=== PATIENT | female | born 1960 | race Caucasian/White ===

== ENCOUNTER 2025-02-26 14:10 | Emergency (ER) | payer BC, SELFPAY ==
--- OUTSIDE RECORDS SUMMARY | 2025-02-26 14:13 | XMS_ITS | Clinical Summary ---
Author Organization [employer] [facility] Address [address] [place] [address] Care Team Providers Care Plate Corrector Name Role Phone Carolina Summers Primary Care Provider Allergies Active Allergy Reactions Criticality Noted Date Comments Yikondx-Lxr-Hdb Reductase Inhibitors Myalgia High 02/19/2007 Medications loratadine (CLARITIN) 10 mg tabletIndications: Environmental allergies Take 1 tablet by mouth once daily. 30 tablet PRN 1 Active amLODIPine (NORVASC) 5 mg tabletIndications: Essential hypertension Take 1 Tablet (5 mg) by mouth once daily. 90 Tablet 3 4 Active losartan (COZAAR) 50 mg tabletIndications: Essential hypertension Take 1 Tablet (50 mg) by mouth two times daily. 180 Tablet 3 4 Active rosuvastatin (CRESTOR) 10 mg tabletIndications: Mixed hyperlipidemia Take 1 Tablet (10 mg) by mouth at bedtime. 90 Tablet 3 4 Active triamterene-hydroc hlorothiazide, 37.5-25 mg, (MAXZIDE-25) 37.5-25 mg tabletIndications: Essential hypertension Take 1 Tablet by mouth once daily in the morning. 90 Tablet 3 4 Active Ventolin HFA 90 mcg/actuation inhalerIndications :Environmental allergies INHALE 1-2 PUFFS BY MOUTH 4 TIMES DAILY IF NEEDED FOR SHORTNESS OF BREATH. 18 g 2 5 Active benzonatate (TESSALON) 200 mg capsuleIndications :Acute cough Take 1 Capsule (200 mg) by mouth 3 times daily if needed for Cough. 21 Capsule 01/06/2025 1:40 PM CDT 5 Active Active Problems Problem Noted Date Diagnosed Date H/O total hysterectomy 09/07/2021 Adenomatous colon polyp 06/08/2015 Overview (06/08/2015): Colonoscopy 05/2015 polyps repeat in 5 years Vitamin D deficiency 06/29/2014 Environmental allergies 05/04/2010 Tobacco use disorder 12/23/2009 Mixed hyperlipidemia 01/28/2009 Unspecified essential hypertension 02/19/2007 Depressive disorder, not elsewhere classified Unspecified disorder of lipoid metabolism 2006 Encounters Date Type Department Care Team Description 01/06/2025 12:50 PM CDT Ancillary Procedure [address] [phone] 01/06/2025 12:15 PM CDT Office Visit [facility] [address] [place] [phone] Mary Solis, DENNY Cough; Sinus Problem 01/06/2025 Travel 12/18/2024 7:30 AM CDT Ancillary Procedure [facility] [address] [place] [address] 12/18/2024 Travel 12/15/2024 Refill [facility] [address] [place] [address] Carolina Summers PA Refill Request (Ventolin Hfa) 12/12/2024 Telephone [facility] [address] [place] [address] Lg Donahue MD Appointment Request (colonoscopy) 12/12/2024 Telephone [facility] [address] [place] [address] Carolina Summers PA from Last 3 Months Immunizations Immunization Administration Dates Next Due AMB Influenza, IIV4 PF (=>6 mos Flulaval,Fluzone Fluarix)(Flu Clinic Only) 01/28/2020 Influenza Virus, Unspecified 01/27/2016,01/21/20 14 Influenza, IIV3 (Age >=3 years) 01/21/2013,03/26,02/19/2007 Influenza, IIV4 02/09/2023,02/03/2022,03/04/2021 Influenza, IIV4 (=>6mos) MDV 01/31/2018,02/02/20 17 Influenza,CCIIV4 PRESERV FREE 01/28/2019 Pneumococcal Conj 20-valent (Prevnar 20) 023 Td (Age >=7 Years) 02/03/2022,09/03/1997 Tdap 04/03/2008 Zoster (Shingrix-RZV, recombinant) 04/05/2022, Family History Medical History Relation Name Comments Diabetes Father Hypertension Father Asthma Mother Cancer Mother metastatic lung Hypertension Mother Cancer-breast Other 1st cousins, P at. x3 Other Other two first cousi ns, female, on dad's side of family with breast cancer Cancer-breast Sister 55 at diagnosi s Cancer-ovarian No Family History Relation Name Status Comments Father Mother Other Sister Social History Tobacco Use Types Packs/Day Years Used Date Smoking Tobacco: Every Day Cigarettes 1 20 Smokeless Tobacco: Never Tobacco Cessation:Ready to Q uit: Not Asked; Counseling Given: Not Answered Comments:started at age 16-17 Alcohol Use Standard Drinks/Week Comments Yes 12 (1 standard drink = 0.6 oz pu re alcohol) PHQ-2 Answer Date Recorded PHQ-2 TOTAL SCORE 0 02/09/2023 Social Connections Answer Date Recorded Do you often feel lonely or isolated from those around you? 0 02/26/2024 Financial Resource Strain Answer Date R ecorded Difficulty of Paying Living Expenses 3 02/26/2024 Difficulty of Paying Living Expenses Not on file 02/26/2024 Food Insecurity Answer Date Recorded Do you worry your food will run out before you are able to buy more? 1 02/26/2024 Transportation Needs Answer Date Record ed Does lack of transportation keep you from medica l appointments? 1 02/26/2024 Does lack of transportation keep you from work, meetings or getting things that you need? 1 02/26/2024 Housing Stability Answer Date Recorded What is your housing situation today? 1 02/26/2024 Utilities Answer Date Recorded Do you have trouble paying f or utilities (for example, heat, electricity, water, phone)? 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 Gender Identity Not on file Sexual Orientation Not on file Occupation Industry Job Start Date Job End Date Not on file Not on file Not on file Not on file Obstetrics History Para Term AB IAB SAB Ectopic Multiple Livin g Live Births 0 0 0 0 0 0 0 0 0 0 Last Filed Vital Signs Vital Sign Reading Time Taken Comments Blood Pressure 128/58 01/06/2025 12:30 PM CDT Pulse 81 01/06/2025 12:30 PM CDT Temperature 36.4 C (97.6 F) 01/06/2025 12:30 PM CDT Respiratory Rate 20 01/06/2025 12:30 PM CDT Oxygen Saturation 98% 01/06/2025 12:30 PM CDT Inhaled Oxygen Concentration - - Weight 66.9 kg (147 lb 6.4 oz) 01/06/2025 12:30 PM CDT Height 160.2 cm (5' 3.07) 02/26/2024 7:42 AM CD T Body Mass Index 26.05 02/26/2024 7:42 AM CDT Plan of Treatment Health Maintenance Due Date Last Done Comments HIV for age 15-65 1977 Colonoscopy through age 75 06/04/2020 06/04/2015, Depression screening for age 12+ 02/10/2024 02/09/2023, 01/26/2021, 01/25/2021, Additional history exists COVID-19 vaccine series ( season) 2025 03/23/2021, 03/04/2021 Influenza Vaccine (#1) 2025 , 02/03/2022, 03/04/2021, Additional history exists BMI (ht and wt on same day) for age 18+ 02/25/2025 02/26/2024, 02/09/2023, 02/03/2022, Additional history exists Mammogram for age 45-75 03/20/2025 03/20/20 24, 03/12/2023, 03/02/2022, Additional history exists Low Dose CT (for lung CA) age 50-80 12/18/2025 12/18/2024, 07/11/2023 Lipids for age 45-75 02/25/2029 02/26/2024, 02/09/2023, 02/03/2022, Additional history exists Tetanus booster 02/04/2032 02/03/2022, 03/15, 09/03/1997 RSV vaccine for adults or (1 - 1-dose 75+ series) 2037 Hepatitis C screening for age 18-79 Completed 02/03/2022 Zoster (shingles) series for age 50+ Completed 04/05/2022, 02/03/2022 Pneumococcal series for age 50+ Completed 02/09/2023 Hepatitis B series for 19+ Aged Out N o longer eligible based on patient's age to complete this topic Medical Devices Implanted Type Area Warehouse Selector Device Identifier Shelf Expiration Date Model / Serial / Lot Prosth [place] 2x5.6mm Adjust Titnm - [id number] Implanted:Qty: 1 on 02/25/2020 by Camacho Richardson MD at Left: [employer] 11/09/2023 655# / / [id number] Procedures Procedure Name Priority Date/Time Associated Diagnosis Comments XR CHEST 2 VIEWS PA AND LATERAL STAT 01/06/2025 1:06 PM CDT SOB (shortness of breath) Acute cough COVID-19 MOLECULAR Routine 01/06/2025 12 :57 PM CDT Acute cough Nasal congestion CT CHEST SCREENING LOW DOSE WO CONTRAST Routine 12/18/2024 7:40 AM CDT Encounter for screening for lung cancer Cigarette smoker XR MAMMO ROBERTO BILAT SCREEN Routine 03/20/2024 1:[address] 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 Dictated by Joe Grullon MD @ 01/06/2025 1:16:31 PM (Electronically Signed) Narrative 01/06/2025 1:16 PM CDT For Patients: As a result of the Cures Act, medical imaging exams and procedure reports are released immediately into your electronic medical record. You may view this report before your referring provider. If you have questions, please contact your health care provider. INDICATION: Shortness of breath. TECHNIQUE: Chest 2 views. COMPARISON: 06/19/2024. FINDINGS: Cardiovascular and mediastinum: Heart size and vasculature are normal in caliber and appearance. Lungs and pleural spaces: No focal consolidation, pleural effusion, or pneumothorax. Bones and soft tissues: Unremarkable for age. Procedure Note Joe Grullon MD - 01/06/2025 For Patients: As a result of the Cures Act, medical imagingexams and procedure reports are released immediately into your electronicmedical record. You may view this report before your referring provider.If you have questions, please contact your health care provider. INDICATION: Shortness of breath. TECHNIQUE: Chest 2 views. COMPARISON: 06/19/2024. FINDINGS: Cardiovascular and mediastinum: Heart size and vasculature are normal incaliber and appearance. Lungs and pleural spaces: No focal consolidation, pleural effusion, orpneumothorax. Bones and soft tissues: Unremarkable for age. IMPRESSION: No evidence of an acute pulmonary process. Dictated by Joe Grullon MD @ 01/06/2025 1:16:31 PM (Electronically Signed) Mary Solis NP GENERAL IMAGING Final Result * COVID-19 MOLECULAR (01/06/2025 12:57 PM CDT) COVID 19 [facility] MOLECULAR Negative Negative 01/07/2025 1:43 AM CDT [facility] TESTING LABORATORY [facility] 01/07/2025 1:43 AM CDT [facility] Comment:Specimen submitted t o [facility] for testing. Other SPECIMEN FROM NASAL FOSSAE / Unknown Non-Blood / Unknown 01/06/2025 12:57 PM CDT 01/06/2025 3:29 PM CDT Narrative [facility] - 01/07/2025 1:43 AM CDT All PCR tests are subject to false negative result due to variability in viral load and collection technique. A negative result does not rule out a SARS-CoV-2 infection. Clinical correlation required. Mary Solis NP MICROBIOLOGY Final Result [facility] [address] [place] [address], [place] * CT CHEST SCREENING LOW DOSE WO CONTRAST (12/18/2024 7:40 AM CDT) Anatomical Region Laterality Modality Computed Tomogra phy Impressions 12/18/2024 3:26 PM CDT Stable tiny BILATERAL pulmonary nodules. LUNG-RADS CATEGORY: 2: BENIGN APPEARANCE OR BEHAVIOR. RADIOLOGIST RECOMMENDATION: Continue annual screening, if eligible, with low-dose CT chest in 12 months. Please note that all CT scans at this facility use dose modulation, iterative reconstruction and/or weight-based dosing when appropriate to reduce radiation dose to as low as reasonably achievable. Dictated by: Pietro Mendez MD @12/18/2024 2:40:36 PM /sp Narrative 12/18/2024 3:26 PM CDT For Patients: As a result of the Century Cures Act, medical imaging exams and procedure reports are released immediately into your electronic medical record. You may view this report before your referring provider. If you have questions, please contact your health care provider. CT CHEST SCREENING LOW-DOSE WITHOUT CONTRAST 12/18/2024 INDICATION: Lung cancer screening. History of smoking. TECHNIQUE: Low-dose lung cancer screening non-contrast CT chest. Dose reduction techniques were used. COMPARISON: 07/11/2023. FINDINGS: NODULES: Multiple tiny nodules are again noted bilaterally measuring 3 mm or less. LUNGS AND PLEURA: No acute findings. MEDIASTINUM: Thyroid is enlarged and heterogeneous, as before. No enlarged lymph nodes. CORONARY ARTERY CALCIFICATION: Mild. LIMITED UPPER ABDOMEN: Atherosclerotic changes. MUSCULOSKELETAL: No fracture. 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 Recommend annual mammograms. MAMMOGRAM ASSESSMENT: ACR 1 Negative PATIENTS: You will also receive a letter with your examination results in an easy to read format. If you have questions about your results, please contact your referring provider. 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 You may view this report before your referring provider. If you have questions, please contact your health care provider. XR MAMMO ROBERTO BILAT SCREEN [[id number]] CLINICAL HISTORY: This is an asymptomatic 63 y.o. patient. INDICATION FOR EXAM: Mammogram Screening. TECHNIQUE: CC & MLO views were obtained. This study was evaluated with the assistance of Computer-Aided Detection. Breast Tomosynthesis was used in interpretation. COMPARISON FILM: Yes 03/12/23 [facility] 03/02/22 [facility] FINDINGS: The breasts are heterogeneously dense, which may obscure small masses. There are no dominant masses, suspicious micro calcifications or areas of architectural distortion. Carolina CHINO MAMMO Final R esult * (ABNORMAL) LIPID PANEL W REFLEX MEASURED LDL (02/26/2024 8:13 AM CDT) CHOLESTEROL, TOTAL 158 <200 mg/dL [facility] HDL CHOLESTEROL 53 > OR = 50 mg/dL [facility] TRIGLYCERIDES 172(H) <150 mg/dL [facility] LDL-CHOLESTEROL 78 mg/dL (calc) [facility] Comment: Reference range: <100 Desirable range <100 mg/dL for primary prevention; <70 mg/dL for patients with CHD or diabetic patients with > or = 2 CHD risk factors. LDL-C is now calculated using the Lacho calculation, which is a validated novel method providing better accuracy than the Friedewald equation in the estimation of LDL-C. Lg SS et al. ROWENA. 2013;310(82): 7358-6931 (http://education.LearnUpon/faq/YWI311) CHOL/HDLC RATIO 3.0 <5.0 (calc) t3n [facility] NON HDL CHOLESTEROL 105 <130 mg/dL (calc) [facility] Comment: For patients with diabetes plus 1 major ASCVD risk factor, treating to a non-HDL-C goal of <100 mg/dL (LDL-C of <70 mg/dL) is considered a therapeutic option. Blood BLOOD SPECIMEN / Unknown 02/26/2024 8:13 AM CDT 02/26/2024 8:14 AM CDT Narrative [facility] - 02/27/2024 3:52 AM CDT FASTING:YES FASTING: YES Carolina CHINO CHEMISTRY Final R esult [facility] [address] [place] [address], [facility] [address] [place] [address] * ANTI HCV (02/03/2022 8:47 AM CDT) [facility] HEPATITIS C ANTIBODY Non-React edil Non-React edil 02/04/2022 5:35 AM CDT [facility] Comment:Antibodies to HCV no t detected; does not exclude the possibility of exposure to HCV. Blood BLOOD SPECIMEN / Unknown Venipuncture / Unknown 02/03/2022 8:47 AM CDT 02/03/2022 8:47 AM CDT us Carolina CHINO SEND OUTS Final R esult [facility] [address] [place] [address], [place] from Last 3 Months or Most Recently Relevant to Health Maintenance [place] [address] [address] [address] Advance Directives * Full Code (Latest Code Status on File) Date Activated Date Inactivated Comments 02/25/2020 6:11 AM 02/25/2020 4:14 PM Question Answer Comments Code Status Discussion: Not Discussed Care Teams Plate Corrector Relationship Specialty Start Date End Date Carolina Summers PA [address] [place] [address] PCP - General Physician Side Stapler 01/13/20
[2025-02-26 14:21] VITALS: BP 180/76; PULSE 96; RESP 16; TEMP 36.1; O2SAT 96; BMI 26.6
--- NOTE | 2025-02-26 14:29 | ED.BACK ---
HPI - Back Pain/Injury General Time Seen by Provider: 14:30 Date Seen: 02/26/25 Chief Complaint: Back Injury/Pain Stated Complaint: back pain Time Seen by Provider: 02/26/25 14:29 Source: patient and RN notes reviewed Mode of arrival: ambulatory Limitations: no limitations History of Present Illness HPI Narrative: Madisyn is a very pleasant 64-year-old female with history of hypertension and hyperlipidemia who comes to the emergency room for evaluation of back and leg pain. Madisyn notes that on February 14 she was mowing the lawn and ran out of gas. During that episode of going to get gas and caring out of battery to jump start the more she noted that she had some slight left lower back pain. Unfortunately a worsened over the next few days. A few days later the pain started radiating down her leg. This has stayed in the posterior thigh not past the knee. She has been to the chiropractor for many many visits over the past 2 weeks. She notes that it just isn't getting any better. She denies any fall or previous fractures. She notes that she had a DEXA scan in the past but has not repeated that and nor she on any medications for osteoporosis. She has not lost control of her bowel or bladder and she has no perineal numbness. She states her most comfortable position is standing up. Related Data Home Medications ?Medication ?Instructions ?Recorded ?Confirmed albuterol sulfate 90 mcg/actuation 1 - 2 puff inhalation QID PRN 02/26/25 02/26/25 aerosol inhaler (Ventolin HFA) dyspnea amlodipine 5 mg tablet 5 mg PO DAILY 02/26/25 02/26/25 losartan 50 mg tablet 50 mg PO BID 02/26/25 02/26/25 rosuvastatin 10 mg tablet 10 mg PO QPM 02/26/25 02/26/25 triamterene 37.5 1 tab PO QAM 02/26/25 02/26/25 mg-hydrochlorothiazide 25 mg tablet Previous Rx's ?Medication ?Instructions ?Recorded hydrocodone 5 mg-acetaminophen 325 1 tab PO Q4-6H PRN pain #10 tabs 02/26/25 mg tablet methylprednisolone 4 mg tablets in See Rx Instructions PO .COMPLEX 02/26/25 a dose pack (Medrol ([place])) #21 ea Allergies Allergy/AdvReac Type Severity Reaction Status Date / Time [id number] Reductase Allergy Mild Muscle Pain Verified 02/26/25 14:27 Inhibitor Review of Systems Status of ROS: Reports: 10 or more systems reviewed and unremarkable except as noted in History and below Const: Reports: chills; Denies: fever or fatigue Eyes: Denies: change in vision ENMT: Denies: neck pain or nasal congestion Cardio: Denies: chest pain, lightheadedness or shortness of breath with exertion Resp: Denies: shortness of breath GI: Denies: vomiting Musculo: Reports: back pain and extremity pain; Denies: neck pain or extremity swelling Endo: Denies: fatigue Exam Narrative: Exam Narrative: Madisyn is alert and oriented. No acute distress. External ears eyes nose clear. Left TM is somewhat retracted with out any evidence of erythema. Neck is supple. Heart with a regular rate and rhythm lungs are clear. Palpation of the lumbar spine yields no tenderness. No pain with palpation over the sciatic notch or sacrum. Patient has full strength and motor lower extremities although knee flexion on the left does increase her pain. DTRs 2 to 3+ bilaterally. Const: Vital Signs, click to edit/add: Vital Signs - 24 hr 02/26/25 14:21 Temperature 97.0 F L Pulse Rate [Pulse Oximeter] 96 Respiratory Rate 16 Blood Pressure [Ri ght Upper Arm] 180/76 H Pulse Oximetry 96 Oxygen Delivery Me thod Room Air Documenting provider has reviewed patient's vital signs: yes Course Course ED Course: Differential diagnosis includes but is not limited to musculoskeletal strain, disc protrusion, foraminal stenosis with radiculopathy. At this time there are no red flag symptoms most. Exam is reassuring. We will obtain x-rays as pain has been ongoing and worsening over the last 12 days. Vital Signs Vital signs: Initial Vital Signs Temperature 97.0 F L 02/26/25 14:21 Temperature Source Temporal Artery Scan 02/26/25 14:21 Pulse Rate 96 02/26/25 14:21 Respiratory Rate 16 02/26/25 14:21 Blood Pressure 180/76 H 02/26/25 14:21 Blood Pressure Mean 110 H 02/26/25 14:21 Pulse Oximetry 96 02/26/25 14:21 Oxygen Delivery Method Room Air 02/26/25 14:21 Vital Signs Temperature 97.0 F L 02/26/25 14:21 Pulse Rate 96 02/26/25 14:21 Respiratory Rate 16 02/26/25 14:21 Blood Pressure 180/76 H 02/26/25 14:21 Pulse Oximetry 96 02/26/25 14:21 Oxygen Delivery Method Room Air 02/26/25 14:21 Temperature 97.0 F L 02/26/25 14:21 Pulse Rate 96 02/26/25 14:21 Respiratory Rate 16 02/26/25 14:21 Blood Pressure 180/76 H 02/26/25 14:21 Pulse Oximetry 96 02/26/25 14:21 Oxygen Delivery Method Room Air 02/26/25 14:21 MDM - Back Pain/Injury MDM Narrative Medical decision making narrative: 1. Low back pain with radiculitis-but no red flag symptoms to suggest cauda equina, progressive neurological weakness. At this time I suggest use of a Medrol Dosepak as an anti-inflammatory. Of will hold off on any ibuprofen at this time. Pain meds to include [place] 5/325 1 tablet every 4-6 hours as needed for discomfort is given. Cautioned against driving, drinking alcohol or using any other sedating medications while on this medication. I did also states that any further narcotics would need to go through primary MD. recommend icing and gentle exercise. Would like patient to follow up with her clinic for evaluation for MRI and/or physical therapy. 2. Left ear discomfort-patient does not have evidence of otitis externa or otitis media. Evidence of congestion is noted with some retraction of the eardrum. Comfort cares at this time to include pain meds. If here has increasing pain drainage will need to be seen by medical expert. 3. Disposition-home at this time. Return for worsening symptoms and as needed. Red flag symptoms were discussed with Madisyn. Imaging Data Lumbar spine x-ray: Attestation: I have reviewed the pertinent imaging results. My impression: Arthritic changes but otherwise no could evidence of a compression fracture or other acute findings. Radiologist's impression: No acute displaced fracture or malalignment. Mild anterior spurring is seen throughout the lumbar spine. Moderate facet arthropathy at L5-S1 with [id number] neural foraminal narrowing at this level. Moderate vascular calcification. Impression: Mild leftward curvature of the lumbar spine. No acute displaced fracture or malalignment. Mild anterior spurring is seen throughout the lumbar spine. Moderate facet arthropathy at L5-S1 with [id number] neural foraminal narrowing at this level. Discharge Plan Discharge Clinical Impression: Left lumbar radiculitis, Discomfort of left ear Patient Disposition: Home, Self-Care Condition: Unchanged Additional Instructions: 1. Pain, medications can cause stomach upset. Would suggest that until this issue is resolved you would be on omeprazole 20 mg daily to protect her stomach. This medication is [id number]. 2. Will start you on a Medrol Dosepak. This is a steroid and is a strong anti-inflammatory. 3. For pain will have you use either Tylenol or hydrocodone. Hydrocodone comes in the form of [place] which is a combination medicine of Tylenol and hydrocodone. Thus, you do not want to take additional Tylenol with this medicine. It does a contain and narcotic which may cause constipation. You should not use this medicine if you are driving, using alcohol and you should not be taking any other sedating medications with it. 4. Ice pack to area of back discomfort 5. Recommend follow-up with the [facility]. You may need MRI and or physical therapy. 6. Return to the emergency room for worsening symptoms and as needed. 7. If you start experiencing ear pain ear drainage please follow-up with medical personnel. Prescriptions: New hydrocodone-acetaminophen 5-325 mg tablet 1 tab PO Q4-6H PRN (Reason: pain) Qty: 10 0RF methylprednisolone [Medrol ([place])] 4 mg tablets,dose pack See Rx Instructions .ROUTE .COMPLEX Qty: 21 0RF Rx Instructions: for 6 days No Action losartan 50 mg tablet 50 mg PO BID amlodipine 5 mg tablet 5 mg PO DAILY triamterene-hydrochlorothiazid 37.5-25 mg tablet 1 tab PO QAM albuterol sulfate [Ventolin HFA] 90 mcg/actuation HFA aerosol inhaler 1 - 2 puff INHALATION QID PRN (Reason: dyspnea) rosuvastatin 10 mg tablet 10 mg PO QPM Follow Up/Referrals: Carolina Summers PA-C [Primary Care Provider, Family Practice] Stand Alone Forms: [employer] Info Instructions
--- NOTE | 2025-02-26 14:43 | CRLHL7_ITS ---
For Patients: As a result of the Century Cures Act, medical imaging exams and procedure reports are released immediately into your electronic medical record. You may view this report before your referring provider. If you have questions, please contact your health care provider. Indication: LEFT LOWER BACK PAIN Technique: Two views of the lumbar spine. Comparison: None. Findings: Mild leftward curvature of the lumbar spine. No acute displaced fracture or malalignment. Mild anterior spurring is seen throughout the lumbar spine. Moderate facet arthropathy at L5-S1 with [id number] neural foraminal narrowing at this level. Moderate vascular calcification. Impression: Mild leftward curvature of the lumbar spine. No acute displaced fracture or malalignment. Mild anterior spurring is seen throughout the lumbar spine. Moderate facet arthropathy at L5-S1 with [id number] neural foraminal narrowing at this level. Dictated by Bhupinder White MD @ 02/26/2025 3:23:36 PM (Electronically Signed)
--- NOTE | 2025-02-26 14:43 | CRLHL7_ITS ---
For Patients: As a result of the Cures Act, medical imaging exams and procedure reports are released immediately into your electronic medical record. You may view this report before your referring provider. If you have questions, please contact your health care provider. Indication: LEFT BUTTOCK AND LEG PAIN Technique: Single view of the pelvis. Comparison: None. Findings: Mild degenerative changes of the bilateral hips. No acute displaced fracture or malalignment. Impression: No acute displaced fracture or malalignment. Dictated by Bhupinder White MD @ 02/26/2025 3:24:53 PM (Electronically Signed)
== END 2025-02-26 16:08 | disposition home or self-care (01) ==
PROVIDERS: Emergency Provider Family Medicine; PCP Physician Assistant Medical
DX: M54.16 Radiculopathy, lumbar region (principal); M54.42 Lumbago with sciatica, left side; H92.02 Otalgia, left ear
CPT/HCPCS: 72100; 72170; 99284

== ENCOUNTER 2025-05-02 12:06 | Emergency (ER) | payer BC, SELFPAY ==
--- OUTSIDE RECORDS SUMMARY | 2025-05-02 12:07 | XMS_ITS | Clinical Summary ---
Author Organization [facility] [employer] [facility] Address [address] [place] [address] Care Team Providers Care Lokie Driver Name Role Phone Carolina Summers Primary Care Provider Allergies Active AllergyReactionsCriticalityNoted EveaNjikxxdqWhaoxfllcqBixyh17/25/2025 Cbnyeph-Qfw-Uvo Reductase IjuchpytuhYmdiyjdPlff75/09/2007 Medications MedicationSigDispense QuantityRefillsLast FilledStart DateEnd DateStatus loratadine (CLARITIN) 10 mg tablet Indications:Environmental allergiesTake 1 tablet by mouth once daily. 30 tablet PRN1ctive amLODIPine (NORVASC) 5 mg tablet Indications:Essential hypertensionTake 1 Tablet (5 mg) by mouth once daily. 90 Tablet 5Active losartan (COZAAR) 50 mg tablet Indications:Essential hypertensionTake 1 Tablet (50 mg) by mouth two times daily. 180 Tablet 5Active rosuvastatin (CRESTOR) 10 mg tablet Indications:Mixed hyperlipidemiaTake 1 Tablet (10 mg) by mouth at bedtime. 90 Tablet 5Active triamterene-hydrochlorothiazide (37.5-25 mg) (MAXZIDE-25) 37.5-25 mg tablet Indications:Essential hypertensionTake 1 Tablet by mouth once daily in the morning. 90 Tablet 5Active Ventolin HFA 90 mcg/actuation inhaler Indications:Environmental allergiesINHALE 1-2 PUFFS BY MOUTH 4 TIMES DAILY IF NEEDED FOR SHORTNESS OF BREATH. 18 g 5Active polyethylene glycol-electrolyte (Golytely) 236-22.74-6.74 -5.86 gram suspension Indications:Screen for colon cancerTake 4,000 mL by mouth one time for 1 dose. Please follow colonoscopy prep instructions provided toyou by the surgery center. 4000 mL 6005/18/2025ctive Ventolin HFA 90 mcg/actuation inhaler Indications:Environmental allergiesINHALE 1-2 PUFFS BY MOUTH 4 TIMES DAILY IF NEEDED FOR SHORTNESS OF BREATH. 18 g Discontinued(Reorder (E-cancel not sent)) Active Problems ProblemNoted DateDiagnosed DateH/O total gbhafftlzdqx29/27/2022denomatous colon polyp06/08/2015 Overview (06/08/2015): Colonoscopy 05/2015 polyps repeat in 5 years Vitamin D lhllzidtmb50/16/2015Environmental ytszbkjaq20/22/2010Tobacco use objwmxzd26/12/2010Mixed pzdrgtxwuwiwst53/17/2009Unspecified essential iwxdgwrkjerz44/09/2007Depressive disorder, not elsewhere jqycdqxrnf63/09/2007 Unspecified disorder of lipoid bivlyhvqpg33/09/2007 Encounters DateTypeDepartmentCare MqhzXqjqbnzimnf35/26/2025Telephone [facility] [address] [place] [address] Nancy Gomez, DO Need Meds106/08/2024Telephone [facility] [address] [place] [address] Carolina Summers PA Zidszxf9104/07/2025 7:30 AM CSTOffice Visit [facility] [address] [place] [address] Carolina Summers PA Physical (64 years old)04/07/20258969Tzcyli71/20/9391Ifxfmn66/19/2025 2:00 PM SPECIAL SERVICES COORDINATOR Office Visit [facility] [address] [place] [address] Amanda Rojas AuD Hearing Problem (Hearing test)04/01/2025 1:30 PM CSTOffice Visit [facility] [address] [facility] [place] [address] Kiana Kamara PA Ear Problem (Ear wax - has a history of cholesteatoma of left middle ear) 04/01/20256656Aimlia54/17/2025 7:40 AM CSTAncillary Procedure [facility] [address] [place] [address] 03/30/20251385Nythtv00/14/7385Svaxmz62/22/2025 7:30 AM CDTOffice Visit [facility] [address] [place] [address] Howard Benedict MD ER Follow up (Back pain, [place], 02/26/25)03/03/20255221Fyeucv07/17/2025Refill [facility] [address] [place] [address] Carolina Summers PA Refill Request (Rosuvastatin, Losartan, MAXZIDE, Amlodipine)02/26/2025Orders Only [facility] Scanner 1 scan: (1-Ord) [facility], XR LUMBAR SPINE 2-3V, 51 Orders Only [facility] Scanner 1 scan: (1-Ord) [facility], XR PELVIS 1-2V, 02/26/2025from Last 3 Months Immunizations ImmunizationAdministration DatesNext DueAMB Influenza, IIV4 PF (=>6 mos Flulaval,Fluzone Fluarix)(Flu Clinic Only)01/28/2020INFLUENZA, IIV3 PF (AGE >= 6 MO)04/07/2025Influenza Virus, Ovvtrtykuae34/15/2016,01/20/2014Influenza, IIV3 (Age >=3 years)01/21/2013,03/26/2008,02/19/2007Influenza, AYH764/, 02/03/2022,03/04/2021Influenza, IIV4 (=>6mos) MDV01/31/2018,02/01/2017 Influenza,CCIIV4 PRESERV FREE01/28/2019Pneumococcal Conj 20-valent (Prevnar 20) 02/09/2023Td (Age >=7 Years)02/03/2022,09/03/1997Tdap106/03/2007Zoster (Shingrix- RZV, recombinant)04/05/2022,02/03/2022 Family History Medical HistoryRelationNameCommentsDiabetesFatherHypertensionFatherAsthmaMother CancerMothermetastatic lungHypertensionMotherCancer-tieubvIunek4xf cousins, Pat. l9WqcvsXsqiyjwc first cousins, female, on dad's side of family with breast cancerCancer-breastSister 0Crvhdy32 at diagnosisCoronary artery diseaseSister 1 DebbieHypertensionSister 1DebbieHyperlipidemiaSister 2MarthaHypertensionSister 2 MarthaSkin cancerSister 2MarthaHyperlipidemiaSister 3DeeannaHypertensionSister 3 DeeannaCancer-ovarianNo Family HistoryRelationNameStatusCommentsBrotherMikeAlive FatherDeceasedMotherDeceasedOtherSister 1DebbieAliveSister 2MarthaAliveSister 3 DeeannaAlive Social History Tobacco UseTypesPacks/DayYears UsedDateSmoking Tobacco: Every PfkUtingvwyig494 Smokeless Tobacco: Never Tobacco Cessation:Ready to Q uit: No; Counseling Given: Yes Comments:started at age 16-19 Alcohol UseStandard Drinks/SjbaVgzkyrnrRqx76 (1 standard drink = 0.6 oz pure alcohol)PHQ-2AnswerDate RecordedPHQ-2 TOTAL ZVWJX545Social Connections AnswerDate RecordedDo you often feel lonely or isolated from those around you?0 03/03/2025lcohol UseAnswerDate RecordedHow often do you have a drink containing alcohol?How many drinks containing alcohol do you have on a typical day when you are drinking?How often do you have five or more drinks on one occasion?Financial Resource StrainAnswerDate Recorded Difficulty of Paying Living Zfgavyni983/21/2025Difficulty of Paying Living ExpensesNot on file03/03/2025Food InsecurityAnswerDate RecordedDo you worry your food will run out before you are able to buy more?Transportation NeedsAnswerDate RecordedDoes lack of transportation keep you from medical appointments?Does lack of transportation keep you from work, meetings or getting things that you need?Housing StabilityAnswerDate Recorded What is your housing situation today?UtilitiesAnswerDate RecordedDo you have trouble paying for utilities (for example, heat, electricity, water, phone)?CommentsNoSex and Gender InformationValueDate Recorded Sex Assigned at BirthNot on fileLegal OskTvcutl68/14/2013 6:18 AM CSTGender IdentityNot on fileSexual OrientationNot on fileOccupationIndustryJob Start Date Job End DateNot on fileNot on fileNot on fileNot on file Obstetrics History GravidaParaTermPretermABIABSABEctopicMultipleLivingLive [id number] Last Filed Vital Signs Vital SignReadingTime TakenCommentsBlood Kvgrkiek625/8204/07/2025 7:32 AM SPECIAL SERVICES COORDINATOR Lgygs564604/07/2025 7:32 AM QBAEydiwteglzo41.6 ??C (97.9 ??F)03/04/2025 7:33 AM CDTRespiratory Rkln4004 12:30 PM CDTOxygen Rmvfvdvlat46%03/04/2025 7:33 AM CDTInhaled Oxygen Concentration--Acyzjp17.4 kg (148 lb 11.2 oz)04/07/2025 7:32 AM DYKWeolbf862 cm (5' 3)04/07/2025 7:32 AM CSTBody Mass Index26.34 04/07/2025 7:32 AM SPECIAL SERVICES COORDINATOR Plan of Treatment DateTypeDepartmentCare Team (Latest Contact Info)Haroggxwzel68/13/2026Hospital Encounter [facility] [address] [place] [address] Nancy Gomez DO [address] [place] [address] NamePriorityAssociated DiagnosesDate/TimeCOLONOSCOPY Screening for colon cancer Health MaintenanceDue DateLast DoneCommentsHIV for age 15-65008/23/1977 Colonoscopy through age 750///, 06/04/2015Depression screening for age 12+/, 01/26/2021, 01/25/2021, Additional history existsCOVID-19 vaccine series (2024- season), 03/04/2021ow Dose CT (for lung CA) age 50-800608/11/2024, 07/11/2023 Mammogram for age 45-75, 03/20/2024, 03/12/2023, Additional history existsBMI (ht and wt on same day) for age 18+, 03/04/2025, 02/26/2024, Additional history existsLipids for age 45-7504/07/2030 04/07/2025, 02/26/2024, 02/09/2023, Additional history existsTetanus booster /, 04/03/2008, 09/03/1997RSV vaccine for adults or (1 - 1-dose 75+ series)2037Hepatitis C screening for age 18-79Completed 02/03/2022Zoster (shingles) series for age 50+Toyyyjkbh78/23/2022, 02/03/2022 Pneumococcal series for age 50+Jamedicfu81/29/2023Influenza VaccineCompleted 04/07/2025, 02/09/2023, 02/03/2022, Additional history existsHepatitis B series for 19+Aged OutNo longer eligible based on patient's age to complete this topic Goals GoalPatient Goal TypeAssociated ProblemsRecent ProgressPatient-Stated?Author Autogenerated Goal Care PlanAutogenerated [employer] ImplantedTypeAreaManufacturerDevice IdentifierShelf Expiration DateModel / Serial / LotProsth [facility] 2x5.6mm Adjust Titks - [id number] Implanted:Qty: 1 on 02/25/2020 by Camacho [facility]: Ear [id number]# / / [id number] Procedures Procedure NamePriorityDate/TimeAssociated DiagnosisCommentsLIPID PANEL W REFLEX MEASURED NZQLwrvhtj55/25/2025 8:29 AM SPECIAL SERVICES COORDINATOR Mixed hyperlipidemia BASIC METABOLIC VALFLYmvvrng09/25/2025 8:29 AM SPECIAL SERVICES COORDINATOR Unspecified essential hypertension XR MAMMO ROBERTO BILAT TFBWOPQgdeipf58/17/2025 7:55 AM SPECIAL SERVICES COORDINATOR Visit for screening mammogram SCAN-RADIOLOGY GWVVGD1802/26/2025 12:00 AM CDT SCAN-RADIOLOGY NUSHBN3102/26/2025 12:[address] CHEST SCREENING LOW DOSE WO XZEDPKNKJjljajh33/07/2025 7:40 AM CDT Encounter for screening for lung cancer Cigarette smoker ANTI TUKFdlvyma81/23/2022 8:47 AM CDT Need for hepatitis C screening test from Last 3 Months or Most Recently Relevant to Health Maintenance Results * (ABNORMAL) LIPID PANEL W REFLEX MEASURED LDL (04/07/2025 8:29 AM SPECIAL SERVICES COORDINATOR)Component ValueRef RangeTest MethodAnalysis TimePerformed AtPathologist Signature CHOLESTEROL, YYATI178<200 mg/dL04/08/2025 4:52 AM [facility]ST[facility] CHEWAMVBABVYS361(H)<150 mg/dL04/08/2025 4:52 AM CSTQUEST DIAGNOSTICSHDL TWDPDEUXUVQ49> OR = 50 mg/dL04/08/2025 4:52 AM CSTQUEST DIAGNOSTICSNON HDL RHNGIDDFJLQ06<130 mg/dL (calc)04/08/2025 4:52 AM CSTQUEST DIAGNOSTICSComment: For patients with diabetes plus 1 major ASCVD risk factor, treating to a non-HDL-C goal of <100 mg/dL (LDL-C of <70 mg/dL) is considered a therapeutic option. CHOL/HDLC RATIO2.6<5.0 (calc)04/08/2025 4:52 AM CST[facility] LDL-MAWZYOEQVNW43ru/dL (calc)04/08/2025 4:52 AM CSTQUEST DIAGNOSTICSComment: Reference range: <100 Desirable range <100 mg/dL for primary prevention; <70 mg/dL for patients with CHD or diabetic patients with > or = 2 CHD risk factors. LDL-C is now calculated using the Lacho calculation, which is a validated novel method providing better accuracy than the Friedewald equation in the estimation of LDL-C. Lg SS et al. ROWENA. 2013;310(19): 7889-1916 (http://education.[employer]/faq/CVM634) Specimen (Source)Anatomical Location / LateralityCollection Method / Volume Collection TimeReceived TimeBloodBLOOD SPECIMEN / UnknownQuest Collect / Unknown 04/07/2025 8:29 AM CST04/07/2025 8:29 AM SPECIAL SERVICES COORDINATOR Narrative Authorizing ProviderResult TypeResult StatusBridget Sepideh Summers PACHEMISTRY Final ResultPerforming OrganizationAddressCity/State/ZIP CodePhone Number [facility] [employer] [facility] [address] [place] [address], * (ABNORMAL) BASIC METABOLIC PANEL (04/07/2025 8:29 AM SPECIAL SERVICES COORDINATOR)ComponentValueRef RangeTest MethodAnalysis TimePerformed AtPathologist IgpchwftgARTNDQ179287 - 146 mmol/L106/08/2024 4:52 AM CSTQUEST DIAGNOSTICSPOTASSIUM4.23.5 - 5.3 mmol/L 04/08/2025 4:52 AM CSTQUEST DIAGNOSTICSCARBON PJZMZUV1091 - 32 mmol/L 04/08/2025 4:52 AM CSTQUEST DLUIMFWAIPZDUYXZHO088(H)65 - 99 mg/dL04/08/2025 4:52 AM CSTQUEST DIAGNOSTICSComment: ? Fasting reference interval For someone without known diabetes, a glucose value between 100 and 125 mg/dL is consistent with prediabetes and should be confirmed with a follow-up test. SUYTNMX18.28.6 - 10.4 mg/dL04/08/2025 4:52 AM CSTQUEST DIAGNOSTICSCREATININE0.90 0.50 - 1.05 mg/dL04/08/2025 4:52 AM CSTQUEST DIAGNOSTICSBUN/CREATININE RATIOSEE NOTE:6 - 22 (calc)04/08/2025 4:52 AM CSTQUEST DIAGNOSTICSComment: ?? Not Reported: BUN and Creatinine are within ?? reference range. ? EGFR72> OR = 60 mL/min/1.66o73604/08/2025 4:52 AM CSTQUEST DIAGNOSTICSUREA NITROGEN (BUN)147 - 25 mg/dL04/08/2025 4:52 AM CSTQUEST DIAGNOSTICSELECTROLYTE ATMGYJU194 - 17 mmol/L (calc)04/08/2025 4:52 AM CSTQUEST JEKBSQVJDQVHQKWPXGN756 98 - 110 mmol/L106/08/2024 4:52 AM CSTQUEST DIAGNOSTICSSpecimen (Source) Anatomical Location / LateralityCollection Method / VolumeCollection Time Received TimeBloodBLOOD SPECIMEN / UnknownQuest Collect / Kbxkxcn4804/07/2025 8:29 AM CST04/07/2025 8:29 AM SPECIAL SERVICES COORDINATOR Narrative Authorizing ProviderResult TypeResult StatusBridget Sepideh Summers PACHEMISTRY Final ResultPerforming OrganizationAddressCity/State/ZIP CodePhone Number [facility] [address] [address], * XR MAMMO ROBERTO BILAT SCREEN (03/30/2025 7:55 AM SPECIAL SERVICES COORDINATOR)Anatomical RegionLaterality ModalityBREASTS, Breast Left, Breast RightBilateralMammographySpecimen (Source)Anatomical Location / LateralityCollection Method / VolumeCollection TimeReceived Time Impressions 03/30/2025 2:31 PM SPECIAL SERVICES COORDINATOR There is no radiographic evidence for malignancy. Recommend annual mammograms. MAMMOGRAM ASSESSMENT: ??ACR 1 Negative PATIENTS: You will also receive a letter with your examination results in an easy to read format. ??If you have questions about your results, please contact your referring provider. Narrative 03/30/2025 2:31 PM SPECIAL SERVICES COORDINATOR For Patients: As a result of the Cures Act, medical imaging exams and procedure reports are released immediately into your electronic medical record. You may view this report before your referring provider. If you have questions, please contact your health care provider. XR MAMMO ROBERTO BILAT SCREEN [[id number]] CLINICAL HISTORY: ??This is an asymptomatic 64 y.o. patient. INDICATION FOR EXAM: Mammogram Screening. TECHNIQUE: CC and MLO views were obtained. ??This study was evaluated with the assistance of Computer-Aided Detection. Breast Tomosynthesis was used in interpretation. COMPARISON FILM: Yes 03/20/24 [facility] 03/02/23 [facility] FINDINGS: ??The breasts are heterogeneously dense, which may obscure small masses. There are no dominant masses, suspicious micro calcifications or areas of architectural distortion. Authorizing ProviderResult TypeResult StatusBridget Sepideh Summers PAMAMMOFinal Result * SCAN-RADIOLOGY REPORT (02/26/2025 12:00 AM CDT) Only the most recent of2 resultswithin the time period is included. Anatomical RegionLateralityModalityOther Narrative Authorizing ProviderResult TypeResult StatusScannerOTHERFinal Result * CT CHEST SCREENING LOW DOSE WO CONTRAST (12/18/2024 7:40 AM CDT)Anatomical RegionLateralityModalityComputed TomographySpecimen (Source)Anatomical Location / LateralityCollection Method / VolumeCollection TimeReceived Time Impressions 12/18/2024 3:26 PM CDT Stable tiny BILATERAL pulmonary nodules. LUNG-RADS CATEGORY: 2: BENIGN APPEARANCE OR BEHAVIOR. RADIOLOGIST RECOMMENDATION: Continue annual screening, if eligible, with low-dose CT chest in 12 months. Please note that all CT scans at this facility use dose modulation, iterative reconstruction and/or weight-based dosing when appropriate to reduce radiation dose to as low as reasonably achievable. ?? Dictated by: Pietro Mendez MD @12/18/2024 2:40:36 PM /sp Narrative 12/18/2024 3:26 PM CDT For Patients: As a result of the Cures Act, medical imaging exams and procedure reports are released immediately into your electronic medical record. ??You may view this report before your referring provider. ?? If you have questions, please contact your [...] UPPER ABDOMEN: Atherosclerotic changes. MUSCULOSKELETAL: No fracture. Authorizing ProviderResult TypeResult StatusCarolina Summers PACTFinal Result * ANTI HCV (02/03/2022 8:47 AM CDT)ComponentValueRef RangeTest MethodAnalysis TimePerformed AtPathologist SignatureHEPATITIS C ANTIBODYNon-Reactive Non-Onekbiyj17/24/2022 5:35 AM CDTALPARK [facility] Comment:Antibodies to HCV not detected; does not exclude the possibility of exposure to HCV.Specimen (Source)Anatomical Location / LateralityCollection Method / VolumeCollection TimeReceived TimeBloodBLOOD SPECIMEN / Unknown Venipuncture / Qrueomf6302/03/2022 8:47 AM CDT02/03/2022 8:47 AM CDT Narrative Authorizing ProviderResult TypeResult StatusCarolina Summers PASEND OUTS Final ResultPerforming OrganizationAddressCity/State/ZIP CodePhone Number [facility] [address] [place] [address], from Last 3 Months or Most Recently Relevant to Health Maintenance Additional Health Concerns Active ProblemsNoted DateDiagnosed DateAutogenerated Uhrgkla9304/13/2025 Insurance * Guarantor: Madisyn Blankenship TypeRelation to PatientDate of BirthPhone Billing AddressPersonal/NqoweaSlhg24[birth year][address] [place] [address] Advance Directives * Full Code (Latest Code Status on File) Date ActivatedDate FeuaqpprynyPqpgpznx96/14/2020 6:11 AM02/25/2020 4:14 PM QuestionAnswerCommentsCode Status Discussion:* Not Discussed Care Teams Team MemberRelationshipSpecialtyStart DateEnd Date Carolina Summers PA [address] [place] [address] PCP - GeneralPhysician Assistant01/13/20
[2025-05-02 12:10] VITALS: BP 187/76; PULSE 92; RESP 16; TEMP 36.7; O2SAT 98; BMI 26.6
[2025-05-02 12:26] LABS: Appearance Urine Slightly Cloudy (Clear)
--- NOTE | 2025-05-02 12:40 | ED.GENADULT ---
HPI - General Adult General Date Seen: 05/02/25 Chief complaint: Urogenital Problems, Female Stated complaint: Difficulty urinating, blood in urine Time Seen by Provider: 05/02/25 12:16 History of Present Illness HPI narrative: Pleasant 64-year-old female presenting to the ER today with urinary problems, gross hematuria and some pain with urination. She has a history of hypertension, hyperlipidemia, vitamin-D deficiency, colon polyps, previous hysterectomy, tobacco use. Current medication list through the [facility] system includes amlodipine 5 mg per day, triamterene/hydrochlorothiazide 37.5/25 mg, Cozaar 50 mg per day, rosuvastatin 10 mg per day, Ventolin inhaler p.r.n. Related Data Home Medications ?Medication ?Instructions ?Recorded ?Confirmed albuterol sulfate 90 mcg/actuation 1 - 2 puff inhalation QID PRN 02/26/25 02/26/25 aerosol inhaler (Ventolin HFA) dyspnea amlodipine 5 mg tablet 5 mg PO DAILY 02/26/25 02/26/25 losartan 50 mg tablet 50 mg PO BID 02/26/25 02/26/25 rosuvastatin 10 mg tablet 10 mg PO QPM 02/26/25 02/26/25 triamterene 37.5 1 tab PO QAM 02/26/25 02/26/25 mg-hydrochlorothiazide 25 mg tablet Previous Rx's ?Medication ?Instructions ?Recorded hydrocodone 5 mg-acetaminophen 325 1 tab PO Q4-6H PRN pain #10 tabs 02/26/25 mg tablet methylprednisolone 4 mg tablets in See Rx Instructions PO .COMPLEX 02/26/25 a dose pack (Medrol (Juan Pablo)) #21 ea cephalexin 500 mg capsule 500 mg PO BID #10 caps 05/02/25 phenazopyridine 100 mg tablet 100 mg PO TID PRN pain #10 tabs 05/02/25 (Pyridium) Allergies Allergy/AdvReac Type Severity Reaction Status Date / Time Yvroihn-NIF-AsA Reductase Allergy Mild Muscle Pain Verified 02/26/25 14:27 Inhibitor PFSH PFSH Social History Smoking Status: Never smoker How often do you have a drink containing alcohol: never AUDIT-C Alcohol total score: 0 Non-prescribed substance use: denies use Exam Const: Vital Signs, click to edit/add: Vital Signs - 24 hr 05/02/25 12:10 Temperature 98.0 F Pulse Rate [Pulse Oximeter] 92 Respiratory Rate 16 Blood Pressure [Ri ght Upper Arm] 187/76 H Pulse Oximetry 98 Oxygen Delivery Me thod Room Air Course Vital Signs Vital signs: Initial Vital Signs Temperature 98.0 F 05/02/25 12:10 Temperature Source Oral 05/02/25 12:10 Pulse Rate 92 05/02/25 12:10 Pulse Rhythm Regular 05/02/25 12:10 Respiratory Rate 16 05/02/25 12:10 Blood Pressure 187/76 H 05/02/25 12:10 Blood Pressure Mean 113 H 05/02/25 12:10 Blood Pressure Position Sitting 05/02/25 12:10 Pulse Oximetry 98 05/02/25 12:10 Oxygen Delivery Method Room Air 05/02/25 12:10 Vital Signs Temperature 98.0 F 05/02/25 12:10 Pulse Rate 92 05/02/25 12:10 Respiratory Rate 16 05/02/25 12:10 Blood Pressure 187/76 H 05/02/25 12:10 Pulse Oximetry 98 05/02/25 12:10 Oxygen Delivery Method Room Air 05/02/25 12:10 Temperature 98.0 F 05/02/25 12:10 Pulse Rate 92 05/02/25 12:10 Respiratory Rate 16 05/02/25 12:10 Blood Pressure 187/76 H 05/02/25 12:10 Pulse Oximetry 98 05/02/25 12:10 Oxygen Delivery Method Room Air 05/02/25 12:10 Medical Decision Making MDM Narrative Medical decision making narrative: This patient presents for evaluation of urinary urgency, bladder spasm, dysuria, and small volume hematuria ongoing for the past couple of days. This clinically is consistent with a urinary tract infection. Urinalysis confirms the infection. There has been no fever, back/flank pain or significant abdominal pain. There is no clinical evidence of pyelonephritis, appendicitis, colitis, diverticulitis or any intraabdominal catastrophe. The patient will be started on antibiotics for the infection. Return if increasing pain, vomiting, fever, or inability to tolerate the oral antibiotic. Cephalexin 500 mg p.o. b.i.d. for 5 days. Discussed pending urine culture the patient. Follow up with primary physician is indicated if not improving in 2-3 days. Patient expresses worry that she might have bladder cancer after a Google search. Recommend follow-up with PCP couple of weeks for repeat urinalysis. Lab Data Labs: Lab Results 05/02/25 Range/Units 12:20 Urine Color Yellow (Yellow) Urine Appearance Slightly Cloudy A (Clear) Urine pH 8.0 (5.0-8.5) Ur Specific [place] 1.015 (1.000-1.030) Urine Protein 1+ A (Negative) Urine Glucose (UA) Negative (Negative) Urine Ketones Negative (Negative) Urine Blood 3+ A (Negative) Urine Nitrite Negative (Negative) Urine Bilirubin Negative (Negative) Urine Urobilinogen 0.2 (0.2-1.0) Ur Leukocyte Esterase 1+ A (Negative) Urine RBC >100 A (0-2) Urine WBC 25-50 A (0-5) Ur Squamous Epith Cells Few (None-Few) Urine Bacteria Few A (None) Discharge Plan Discharge Clinical Impression: Urinary tract infection Patient Disposition: Home, Self-Care Condition: Stable Instructions: Urinary Tract Infection in Women (DC) Additional Instructions: As we discussed, please start on the antibiotic (cephalexin) today . take 2 doses today and then twice a day for 4 more days. We will call you if your culture grows an unusual strain of bacteria or if we need to change her antibiotic. We expect you should start to feel better within about 2-3 days. In the meantime you can use Pyridium if needed to help decrease your urinary urgency and bladder irritating symptoms. Remember, peridium can cause orange discoloration of your urine. Come back to the ER right away if you have any worsening symptoms such as fever, chills, vomiting, flank pain, weakness. Even if you get better, please recheck with your regular doctor in a few weeks to have a repeat urine sample. Prescriptions: New cephalexin 500 mg capsule 500 mg PO BID Qty: 10 0RF phenazopyridine [Pyridium] 100 mg tablet 100 mg PO TID PRN (Reason: pain) Qty: 10 0RF No Action losartan 50 mg tablet 50 mg PO BID amlodipine 5 mg tablet 5 mg PO DAILY triamterene-hydrochlorothiazid 37.5-25 mg tablet 1 tab PO QAM albuterol sulfate [Ventolin HFA] 90 mcg/actuation HFA aerosol inhaler 1 - 2 puff INHALATION QID PRN (Reason: dyspnea) rosuvastatin 10 mg tablet 10 mg PO QPM hydrocodone-acetaminophen 5-325 mg tablet 1 tab PO Q4-6H PRN (Reason: pain) Qty: 10 0RF methylprednisolone [Medrol (Juan Pablo)] 4 mg tablets,dose pack See Rx Instructions .ROUTE .COMPLEX Qty: 21 0RF Rx Instructions: for 6 days Follow Up/Referrals: Carolina Summers PA-C [Primary Care Provider, Family Practice] Stand Alone Forms: MyHealth Info Instructions
== END 2025-05-02 13:05 | disposition home or self-care (01) ==
LOC: ED 13:07
PROVIDERS: Emergency Provider Emergency Medicine; PCP Physician Assistant Medical
DX: N39.0 Urinary tract infection, site not specified (principal); B96.20 Unspecified Escherichia coli [E. coli] as the cause of diseases classified elsewhere; R31.0 Gross hematuria
CPT/HCPCS: 81001; 87086; 99282; 99283